=== PATIENT | female | born 1945 | race Caucasian/White ===

== ENCOUNTER 2019-01-03 18:17 | Inpatient (IN) | payer MEDICARE ==
[2019-01-03 18:43] VITALS: BMI 43.0
--- NOTE | 2019-01-03 18:59 | C.PDOC ---
History Of Present Illness 73 yr old female, with a PMHx of HTN, HLD, CAD with stent, p/w LLQ abdominal pain, vomiting, diarrhea x4d. Pt was sent in by PMD, Dr. Funk for evaluation and admission. Son at bedside reports multiple episodes of non-bloody, non-dark diarrhea with abdominal pain as well as a mild headache. He reports that patient has had the mild headache for the past 3 to 4 months, but it is not the worst headache of her life. The abdominal pain is described as diffuse and throbbing. Last BM was this morning and was normal. Patient has not taken any medications for the pain. Denies falls, trauma, rash, vaginal discharge, or vomiting today. 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 used bedside Time Seen by Provider: 01/03/19 18:59 Chief Complaint (Nursing): Abdominal Pain History Per: Patient History/Exam Limitations: no limitations Onset/Duration Of Symptoms: Days (4) Current Symptoms Are (Timing): Still Present Quality Of Discomfort: "Pain" Associated Symptoms: Vomiting, Diarrhea Last Bowel Movement: Today Recent travel outside of the [place]: No Additional History Per: Patient Past Medical History Reviewed: Historical Data, Nursing Documentation, Vital Signs Vital Signs: Last Vital Signs Temp 98.6 F 01/03/19 18:43 Pulse 68 01/03/19 18:43 Resp 18 01/03/19 18:43 BP 112/76 01/03/19 18:43 Pulse Ox 95 01/03/19 18:43 Primary Care Provider: Jason Funk - Medical History PMH: HTN, Hypercholesterolemia Surgical History: Coronary Stent Family History: States: No Known Family Hx - Social History Hx Alcohol Use: No Hx Substance Use: No - Immunization History Hx Tetanus Toxoid Vaccination: No Hx Influenza Vaccination: No Hx Pneumococcal Vaccination: No Review Of Systems Cardiovascular: Negative for: Chest Pain Respiratory: Negative for: Shortness of Breath Gastrointestinal: Positive for: Abdominal Pain (LLQ). Negative for: Melena, Hematochezia Neurological: Positive for: Headache Physical Exam - Physical Exam Appears: Well, Non-toxic, No Acute Distress Skin: Warm, Dry Head: Atraumatic, Normacephalic Eye(s): bilateral: Normal Inspection, PERRL, EOMI Ear(s): Bilateral: Normal Nose: Normal, No Flaring, No Discharge, No Epistaxis, No Deformity, No Te nderness, No Septal Hematoma Oral Mucosa: Moist Tongue: Normal Appearing Lips: Normal Appearing Throat: Normal, No Erythema, No Exudate, No Drooling Neck: Normal, Normal ROM, Trachea Midline, Supple, Other (no meningeal signs) Lymphatic: No Adenopathy Chest: Symmetrical, No Tenderness Cardiovascular: Rhythm Regular, No Friction Rub, No Murmur, No JVD Respiratory: No Rales, No Rhonchi, No Wheezing Gastrointestinal/Abdominal: Soft, Tenderness (diffusely tender), No Mass, No Distention, No Guarding, No Rebound Back: Normal Inspection, No CVA Tenderness, No Vertebral Tenderness Extremity: Normal ROM, No Tenderness, No Pedal Edema Extremity: Bilateral: Atraumatic, Normal Color And Temperature Pulses: Left Dorsalis Pedis: Normal, Right Dorsalis Pedis: Normal Neurological/Psych: Oriented x3, Normal Speech, Normal Cognition, Normal Cranial Nerves, No Cerebellar Signs, Normal Motor, Normal Sensation ED Course And Treatment - Laboratory Results Result Diagrams: 01/04/19 08:15 01/04/19 08:15 O2 Sat by Pulse Oximetry: 95 (on RA ) Pulse Ox Interpretation: Normal - CT Scan/US CT Head Other Rad Studies (CT/US): Read By Radiologist, Radiology Report Reviewed CT/US Interpretation: EXAM: CT Head Without IV contrast. CLINICAL HISTORY: Headache. TECHNIQUE: Axial computed tomography images of the head/brain without intravenous contrast. COMPARISON: None provided. FINDINGS: BRAIN: There is mild periventricular, deep and subcortical white matter hypodensity bilaterally, compatible with mild microangiopathy. No midline shift or mass effect. No evidence for acute intracranial hemorrhage. VENTRICLES: There is mild prominence of ventricles and sulci compatible with mild atrophy. ORBITS: The orbits are unremarkable. SINUSES AND MASTOIDS: The paranasal sinuses and mastoid air cells are clear. BONES: No displaced calvarial fractures identified. SOFT TISSUES: Unremarkable. MISCELLANEOUS: No evidence for acute territorial infarction. IMPRESSION: 1. There is mild prominence of ventricles and sulci compatible with mild atrophy. 2. There is mild periventricular, deep and subcortical white matter hypodensity bilaterally, compatible with mild microangiopathy. 3. No evidence for acute intracranial abnormality. CT abd/pel Other Rad Studies (CT/US): Read By Radiologist, Radiology Report Reviewed CT/US Interpretation: EXAM: CT Abdomen and Pelvis without IV contrast. CLINICAL HISTORY: Abd pain. TECHNIQUE: Axial computed tomography images of the abdomen and pelvis without intravenous contrast. 0.00 mGy-cm. CONTRAST: Without. COMPARISON: None provided. FINDINGS: LUNG BASES: The lung bases appear clear. No pleural effusions are seen. LIVER: Unremarkable. GALLBLADDER AND BILE DUCTS: The gallbladder appears within normal limits. No radioopaque gallstones are seen. No biliary ductal dilatation is evident. PANCREAS: Un remarkable. SPLEEN: Unremarkable. ADRENAL GLANDS: Unremarkable. KIDNEYS, URETERS, AND BLADDER: The kidneys appear within normal limits. There is no hydronephrosis or hydroureter. No urinary calculi are seen. The urinary bladder appeared normal in size and configuration. STOMACH AND BOWEL: Unremarkable appearance of the stomach and bowel. No evidence of bowel obstruction. No evidence suggesting enteritis or colitis. APPENDIX: No evidence of acute appendicitis on CT examination. PERITONEUM: No free fluid. No free air. LYMPH NODES: No lymphadenopathy is evident. REPRODUCTIVE: Unremarkable as visualized. VASCULATURE: No evidence of abdominal aortic aneurysm. Extensive atherosclerotic vascular plaquing is present. BONES: No aggressive appearing osseous lesion. No acute osseous pathology evident. There is evidence of disc desiccation and degenerative disc disease at L2-3 and L5-S1. IMPRESSION: No acute intra-abdominal or pelvic abnormality. Medical Decision Making Medical Decision Makin yr old female p/w LLQ abdominal pain, vomiting, diarrhea x4d. Pt was sent in by PMD, Dr. Funk for evaluation. Mild diffuse abd pain w. out guarding or rebound noted on exam. No fall or trauma. Normal neuro exam. No rash. Overall well appearing. No urinary complaints or CVAT. MIld LORENZANA x3-4 months, with normal neuro exam. Not worst of life or sudden in onset. No meningeal signs. No baptist pain or vision changes. Plan: CT A&P CT Head EKG Labs UA IV Fluids Impression: Gastritis 2045 wbc 15k pending ua, cxr added on giovanny on labs: no baseline ek, nsr, no stemi 2211 CXR unremarkable per my read CTH unremarkable 2226 mild episode of hypoTN, given fluids with improvement no meningeal signs on exam CT AP unremarkable wants tylenol for LORENZANA will give rocephin given elevated WBC and pending UA pt in NAD, agreeable to plan Accepted by Dr. jason Funk to his service UTI noted on labs, abx previously ordered, pt in NAD, BP improved Disposition - Disposition Disposition: HOSPITALIZED Disposition Time: 22:31 Condition: STABLE - Clinical Impression Clinical Impression: Abdominal pain, Leukocytosis, UTI (urinary tract infection) - Scribe Statement The provider has reviewed the documentation as recorded by the Maria Ines Aguilar All medical record entries made by the Mollyibtamika were at my direction and personally dictated by me. I have reviewed the chart and agree that the record accurately reflects my personal performance of the history, physical exam, medical decision making, and the department course for this patient. I have also personally directed, reviewed, and agree with the discharge instructions and disposition.
[2019-01-03] MEDS ORDERED: Sodium Chloride 0.9% 1,000 ML IV SCH (19:30)
[2019-01-03 20:17] LABS: BASO # 0.1 K/uL (0.0-0.2); BASO % 0.3 % (0.0-2.0); EOS # 0.2 K/uL (0.0-0.7); EOS % 1.1 % (0.0-4.0); HEMOGLOBIN 12.5 g/dL (11.0-16.0); LYMPH # 4.8 K/uL (1.0-4.3); LYMPH % 31.3 % (20.0-40.0); MEAN CELL VOLUME 77.1 fL (81.0-99.0); MEAN CORPUSCULAR HEMOGLOBIN 25.2 pg (27.0-31.0); MEAN CORPUSCULAR HGB CONC 32.7 g/dL (33.0-37.0); MEAN PLATELET VOLUME 8.2 fL (7.2-11.7); MONO # 1.8 K/uL (0.0-0.8); NEUT # 8.5 K/uL (1.8-7.0); NEUT % 55.3 % (50.0-75.0); RBC 4.95 Mil/uL (3.80-5.20); RED CELL DISTRIBUTION WIDTH 15.9 % (11.5-14.5); WHITE BLOOD COUNT 15.3 K/uL (4.8-10.8)
[2019-01-03 20:26] LABS: ALB/GLOB RATIO 1.2 (1.0-2.1); ALBUMIN 4.3 g/dL (3.5-5.0); CALCIUM 10.1 mg/dl (8.6-10.4)
[2019-01-03 22:02] LABS: VENOUS BLOOD GAS BASE EXCESS 8.5 mmol/L (0.0-2.0); VENOUS BLOOD GAS PCO2 57 mmHg (40-60); VENOUS BLOOD GAS PO2 23 mm/Hg (30-55)
[2019-01-03] MEDS ORDERED: Sodium Chloride 0.9% 500 ML IV ONE (22:08)
[2019-01-03 22:27] LABS: SQUAMOUS EPITHIAL 1 /hpf (0-5); URINE BILIRUBIN NEGATIVE (NEGATIVE); URINE BLOOD NEGATIVE (NEGATIVE); URINE CLARITY Clear (Clear); URINE COLOR Yellow (YELLOW); URINE GLUCOSE (UA) 2+ mg/dL (Normal); URINE LEUKOCYTE ESTERASE TRACE Leu/uL (Negative); URINE PROTEIN NEGATIVE (NEGATIVE); URINE UROBILINOGEN NORMAL mg/dL (0.2-1.0)
[2019-01-04] MEDS: Sodium Chloride 0.9% 1,000 ML IV SCH ×3 (01:25→14:10)
[2019-01-04] MEDS: Levothyroxine 50 MCG TAB PO SCH (06:23)
[2019-01-04] MEDS: (Novolog) Insulin Aspart, Recombinant 100 u/ml 10 ml vial SC SCH ×4 (07:56→21:08)
[2019-01-04 08:27] LABS: BASO # 0.1 K/uL (0.0-0.2); BASO % 0.5 % (0.0-2.0); EOS # 0.3 K/uL (0.0-0.7); EOS % 2.2 % (0.0-4.0); LYMPH # 3.4 K/uL (1.0-4.3); LYMPH % 29.2 % (20.0-40.0); MEAN CORPUSCULAR HEMOGLOBIN 25.4 pg (27.0-31.0); MEAN CORPUSCULAR HGB CONC 33.4 g/dL (33.0-37.0); MEAN PLATELET VOLUME 8.5 fL (7.2-11.7); MONO # 1.3 K/uL (0.0-0.8); MONO % 11.2 % (0.0-10.0); NEUT # 6.6 K/uL (1.8-7.0); NEUT % 56.9 % (50.0-75.0); NRBC % 0.1 % (0.0-2.0); RBC 4.75 Mil/uL (3.80-5.20); RED CELL DISTRIBUTION WIDTH 16.1 % (11.5-14.5); WHITE BLOOD COUNT 11.6 K/uL (4.8-10.8)
--- NOTE | 2019-01-04 08:38 | CT ---
Date of service: 01/03/2019 PROCEDURE: CT HEAD WITHOUT CONTRAST. HISTORY: Headache COMPARISON: None available. TECHNIQUE: Axial computed tomography images were obtained through the head/brain without intravenous contrast. Radiation dose: Total exam DLP = 1039.27 mGy-cm. This CT exam was performed using one or more of the following dose reduction techniques: Automated exposure control, adjustment of the mA and/or kV according to patient size, and/or use of iterative reconstruction technique. FINDINGS: HEMORRHAGE: No intracranial hemorrhage. BRAIN: No mass effect or edema. Scattered focal lucencies in the subcortical and periventricular white matter suggestive for chronic microvascular ischemic change. Diffuse generalized parenchymal atrophy. Small focal hypodensity seen within the right agee radiata on series 2, image 13 which may represent a small lacunar infarct. Additional focal lucency seen within the right external capsule which may also represent a lacunar infarct. VENTRICLES: Unremarkable. No hydrocephalus. CALVARIUM: Unremarkable. PARANASAL SINUSES: Unremarkable as visualized. No significant inflammatory changes. MASTOID AIR CELLS: Unremarkable as visualized. No inflammatory changes. OTHER FINDINGS: None. IMPRESSION: No acute intracranial abnormality. Chronic microvascular ischemic changes. Diffuse generalized parenchymal atrophy. Small lacunar infarcts in the right agee radiata and right external capsule. If symptoms persists, consider correlation with MRI. A preliminary report was generated at 10:08 p.m. on 01/03/[address] Taurus Taylor from [employer].
[2019-01-04 08:47] LABS: ALB/GLOB RATIO 1.1 (1.0-2.1); ALBUMIN 3.9 g/dL (3.5-5.0); CALCIUM 9.4 mg/dl (8.6-10.4)
[2019-01-04 08:51] LABS: CK-MB 2.98 ng/mL (0.0-3.38); TROPONIN I 0.043 ng/mL (0.00-0.120)
[2019-01-04] MEDS: metroNIDAZOLE IV 500 mg/100 ml 500 MG/100 ML BAG IVPB SCH ×2 (09:15→17:08)
[2019-01-04] MEDS: Potassium Chloride 20 mEq ER Tab PO SCH ×2 (09:15→13:00)
[2019-01-04] MEDS ORDERED: Pneumococcal 23-Valent Vaccine IM ONE (09:15)
--- NOTE | 2019-01-04 09:48 | CT ---
Date of service: 01/03/2019 PROCEDURE: CT abdomen and pelvis HISTORY: Abdominal pain COMPARISON: No prior study available comparison. TECHNIQUE: Contiguous axial images of the abdomen and pelvis performed without oral or intravenous contrast material. Additional 2D sagittal coronal reformats generated. Radiation dose: Total exam DLP = 952.73 mGy-cm. This CT exam was performed using one or more of the following dose reduction techniques: Automated exposure control, adjustment of the mA and/or kV according to patient size, and/or use of iterative reconstruction technique. FINDINGS: LOWER THORAX: There appears to be some minor chronic atelectasis and or scarring in lingular region. Mild passive/dependent type atelectasis both posterior lower lung cline. No effusion or basilar pneumothorax. Heart size within range of normal. No significant pericardial effusion. A tiny hiatal hernia. LIVER: Liver exhibits normal size and attenuation pattern without masses collections or calcifications. Gallbladder and bile ducts Gallbladder physiologically distended. No evidence of intraluminal gallbladder calculi however questionable artifact versus layering dependent sludge. PANCREAS: Pancreas is atrophic and fatty replaced. No large pancreatic mass collection. SPLEEN: Spleen exhibits normal size and attenuation pattern. A tiny radiopaque density-calcification within the splenic hilar region which is likely vascular in origin. ADRENALS: A slightly nodular enlargement left adrenal gland KIDNEYS AND URETERS: Kidneys demonstrate relatively symmetric size. No evidence of nephrolithiasis or hydronephrosis. Questionable small cyst lateral cortex mid to lower pole left kidney. BLADDER: Urinary bladder is incompletely distended which presumably in part accounts for thick-walled appearance however correlation with urinalysis recommended to exclude cystitis. REPRODUCTIVE: Unremarkable as visualized APPENDIX: No evidence of acute appendicitis. BOWEL: Evaluation of bowel is somewhat limited due to the lack of oral contrast material.. The stomach is incompletely distended with slight thick-walled appearance. Visualized loops of small bowel exhibit normal contour caliber. No evidence of acute mechanical small bowel obstruction. Large bowel appears grossly unremarkable. PERITONEUM: Unremarkable. No fluid collection. No free air. There is a small fat containing umbilical hernia. LYMPH NODES: Unremarkable. No enlarged lymph nodes. VASCULATURE: Unremarkable. No aortic aneurysm. Aortic atherosclerotic calcification or mural plaque present. BONES: Mild multilevel degenerative spondylosis of the lumbar spine.. OTHER FINDINGS: None. IMPRESSION: Mild urinary bladder wall thickening in part due to incomplete distention however correlation with urinalysis recommended to exclude cystitis. Slight nodular is enlargement left adrenal gland. Suspect small cyst lateral cortex lower pole left kidney
[2019-01-04] MEDS ORDERED: Enoxaparin 40 mg Syringe SC SCH ×2 (10:00)
--- NOTE | 2019-01-04 10:33 | RAD ---
Chest x-ray single frontal view HISTORY: Leukocytosis. Comparison 01/03/2019 FINDINGS: Mild venous congestion. Status post median sternotomy. Tortuous ectatic aorta with atherosclerotic calcification at the aortic knob. Mild nodularity at the left base. Top normal heart size. Degenerative changes the spine and shoulders. Impression: Mild venous congestion. Status post median sternotomy. Tortuous ectatic aorta with atherosclerotic calcification at the aortic knob. Mild nodularity at the left lung base. Clinical correlation.
[2019-01-04 11:24] LABS: INR 1.2; PARTIAL THROMBOPLASTIN TIME 27.9 SECONDS (21-34); PROTHROMBIN TIME 12.7 SECONDS (9.7-12.2)
[2019-01-04 17:31] LABS: CK-MB 2.52 ng/mL (0.0-3.38)
[2019-01-04 17:33] LABS: TROPONIN I 0.033 ng/mL (0.00-0.120)
--- NOTE | 2019-01-04 22:42 | CP.PCM.HP ---
Present on Admission - Present on Admission Any Indicators Present on Admission: Yes History of Uncontrolled Diabetes: Yes Past Patient History - Past Social History Smoking Status: Never Smoked - CARDIAC Hx Hypercholesterolemia: Yes Hx Hypertension: Yes - ENDOCRINE/METABOLIC Hx Endocrine Disorders: Yes Hx Diabetes Mellitus Type 2: Yes - MUSCULOSKELETAL/RHEUMATOLOGICAL Hx Falls: No - PSYCHIATRIC Hx Substance Use: No - SURGICAL HISTORY Hx Coronary Stent: Yes - ANESTHESIA Hx Anesthesia: Yes Meds Allergies/Adverse Reactions: Allergies Allergy/AdvReac Type Severity Reaction Status Date / Time No Known Allergies Allergy Verified 01/03/19 18:42 Results - Vital Signs Recent Vital Signs: Last Vital Signs Temp 97.7 F 01/04/19 15:02 Pulse 92 H 01/04/19 15:02 Resp 20 01/04/19 15:02 BP 131/64 01/04/19 15:02 Pulse Ox 95 01/04/19 21:21 - Labs Result Diagrams: 01/04/19 08:15 01/04/19 08:15 Labs: Laboratory Results - last 24 hr 01/04/19 01/04/19 01/04/19 08:15 08:15 11:00 WBC 11.6 H RBC 4.75 Hgb 12.0 Hct 36.1 MCV 76.0 L MCH 25.4 L MCHC 33.4 RDW 16.1 H Plt Count 257 MPV 8.5 Neut % (Auto) 56.9 Lymph % (Auto) 29.2 [place] % (Auto) 11.2 H Eos % (Auto) 2.2 Baso % (Auto) 0.5 Neut # (Auto) 6.6 Lymph # (Auto) 3.4 [place] # (Auto) 1.3 H Eos # (Auto) 0.3 Baso # (Auto) 0.1 PT INR APTT Sodium 140 Potassium 2.9 L Chloride 96 L Carbon Dioxide 32 H Anion Gap 15 BUN 68 H Creatinine 2.5 H Est GFR ( Amer) 23 Est GFR (Non-Af Amer) 19 POC Glucose (mg/dL) 233 H Random Glucose 207 H D Calcium 9.4 Total Bilirubin 0.5 AST 27 ALT 28 Alkaline Phosphatase 67 Total Creatine Kinase 60 CK-MB (Mass) 2.98 Troponin I 0.0430 Total Protein 7.4 Albumin 3.9 Globulin 3.4 Albumin/Globulin Ratio 1.1 Carcinoembryonic Ag CA 19-9 Antigen CA 125 Antigen Vitamin B12 359 TSH 3rd Generation 1.40 01/04/19 01/04/19 01/04/19 11:10 11:10 16:44 WBC RBC Hgb Hct MCV MCH MCHC RDW Plt Count MPV Neut % (Auto) Lymph % (Auto) [place] % (Auto) Eos % (Auto) Baso % (Auto) Neut # (Auto) Lymph # (Auto) [place] # (Auto) Eos # (Auto) Baso # (Auto) PT 12.7 H INR 1.2 APTT 27.9 Sodium Potassium Chloride Carbon Dioxide Anion Gap BUN Creatinine Est GFR ( Amer) Est GFR (Non-Af Amer) POC Glucose (mg/dL) 86 Random Glucose Calcium Total Bilirubin AST ALT Alkaline Phosphatase Total Creatine Kinase CK-MB (Mass) Troponin I Total Protein Albumin Globulin Albumin/Globulin Ratio Carcinoembryonic Ag 2.6 CA 19-9 Antigen 37.9 H CA 125 Antigen 6.6 Vitamin B12 [facility] 3rd Generation 01/04/19 01/04/19 01/04/19 17:03 21:01 21:03 WBC RBC Hgb Hct MCV MCH MCHC RDW Plt Count MPV Neut % (Auto) Lymph % (Auto) [place] % (Auto) Eos % (Auto) Baso % (Auto) Neut # (Auto) Lymph # (Auto) [place] # (Auto) Eos # (Auto) Baso # (Auto) PT INR APTT Sodium Potassium Chloride Carbon Dioxide Anion Gap BUN Creatinine Est GFR ( Amer) Est GFR (Non-Af Amer) POC Glucose (mg/dL) 61 L 58 L Random Glucose Calcium Total Bilirubin AST ALT Alkaline Phosphatase Total Creatine Kinase 62 CK-MB (Mass) 2.52 Troponin I 0.0330 Total Protein Albumin Globulin Albumin/Globulin Ratio Carcinoembryonic Ag CA 19-9 Antigen CA 125 Antigen Vitamin B12 [facility] 3rd Generation 01/04/19 21:55 WBC RBC Hgb Hct MCV MCH MCHC RDW Plt Count MPV Neut % (Auto) Lymph % (Auto) [place] % (Auto) Eos % (Auto) Baso % (Auto) Neut # (Auto) Lymph # (Auto) [place] # (Auto) Eos # (Auto) Baso # (Auto) PT INR APTT Sodium Potassium Chloride Carbon Dioxide Anion Gap BUN Creatinine Est GFR ( Amer) Est GFR (Non-Af Amer) POC Glucose (mg/dL) 120 H Random Glucose Calcium Total Bilirubin AST ALT Alkaline Phosphatase Total Creatine Kinase CK-MB (Mass) Troponin I Total Protein Albumin Globulin Albumin/Globulin Ratio Carcinoembryonic Ag CA 19-9 Antigen CA 125 Antigen Vitamin B12 TSH 3rd Generation
[2019-01-05] MEDS: metroNIDAZOLE IV 500 mg/100 ml 500 MG/100 ML BAG IVPB SCH ×3 (02:22→18:22)
[2019-01-05] MEDS: Sodium Chloride 0.9% 1,000 ML IV SCH (03:55)
[2019-01-05 05:37] LABS: BASO % 0.4 % (0.0-2.0); EOS # 0.3 K/uL (0.0-0.7); EOS % 3.2 % (0.0-4.0); HEMOGLOBIN 11.6 g/dL (11.0-16.0); LYMPH # 3.2 K/uL (1.0-4.3); LYMPH % 34.3 % (20.0-40.0); MEAN CELL VOLUME 77.4 fL (81.0-99.0); MEAN CORPUSCULAR HEMOGLOBIN 25.1 pg (27.0-31.0); MEAN CORPUSCULAR HGB CONC 32.5 g/dL (33.0-37.0); MEAN PLATELET VOLUME 8.1 fL (7.2-11.7); MONO # 1.2 K/uL (0.0-0.8); MONO % 12.5 % (0.0-10.0); NEUT # 4.6 K/uL (1.8-7.0); NEUT % 49.6 % (50.0-75.0); NRBC % 0.1 % (0.0-2.0); RBC 4.62 Mil/uL (3.80-5.20); RED CELL DISTRIBUTION WIDTH 16.1 % (11.5-14.5); WHITE BLOOD COUNT 9.3 K/uL (4.8-10.8)
--- NOTE | 2019-01-05 05:40 | HP ---
CHIEF COMPLAINT: Abdominal pain, nausea, and vomiting. HISTORY OF PRESENT ILLNESS: This is a 73-year-old [place]ian female, who is noncompliant with diet, medication and followup with past medical history of osteoarthritis, type 2 diabetes, hypertension, and hyperlipidemia, who is noncompliant with her diet and medication. The patient was seen by me on the day of admission with abdominal pain, nausea, vomiting, generalized weakness, polyuria, polydipsia, polyphagia, and dysuria. The patient denies any history of sneezing, itchy eyes, or itchy nose. She denied any history of loss of consciousness. The patient has nausea, no vomiting. She has generalized abdominal pain, bloating, inability to move bowels. She has bilateral knee pain. She denies any dyspnea on exertion, orthopnea, or PND. She has generalized weakness. She is extremely anxious, distress. According to the patient, she also has mild headaches. Her headaches have been going on for three to four months right now, but in the past, she had these headaches all her life. The abdominal pain is diffuse, throbbing. Had a large bowel movement prior to the day of admission. There is no history of dysuria. There is no history of joint pain. There is no history of incontinence of the urine. There is no history of fever or chills. PAST MEDICAL HISTORY: Type 2 diabetes, hypertension, and hyperlipidemia. SOCIAL HISTORY: Nonsmoker, non-ETOH user. CURRENT MEDICATIONS: The [place], she was not taking any medications. PHYSICAL EXAMINATION: GENERAL: An elderly female, who is distressed by extreme anxiety, bloating, and abdominal discomfort. VITAL SIGNS: Blood pressure 131/64, pulse 92, respiratory rate 20, and temperature 97.7. SKIN: Senile turgor, no bruises, no purpura, no petechiae, and no ecchymosis. HEENT: Atraumatic, normocephalic. Negative pallor. Negative jaundice. Extraocular movements are intact. NECK: Supple. No JVD. No lymph nodes. No thyromegaly. No carotid bruits. CHEST WALL: Bilateral symmetrical expansion. LUNGS: Clear, no rales, no rhonchi. CARDIOVASCULAR SYSTEM: PMI not localized. S1 and S2 regular. No heave, no thrill. ABDOMEN: Soft and nontender. Bowel sounds are positive. RECTAL: No masses, no bleed. EXTREMITIES: No clubbing,cyanosis, or edema. CENTRAL NERVOUS SYSTEM: Awake, alert, and oriented x3. Cranial nerves II through XII are normal. Power is 5/5 x4. Plantars are downgoing. ASSESSMENT: 1. Abdominal pain, nausea, vomiting, rule out gastritis, rule out peptic ulcer disease, rule out urinary tract infection, rule out gastroenteritis. 2. Dehydration. 3. Severe anxiety and depression. 4. Hypertension. PLAN: Admit. Detailed orders are written. Seen and examined. Jason Funk MD
[2019-01-05 06:46] LABS: ALB/GLOB RATIO 1.2 (1.0-2.1); ALBUMIN 3.8 g/dL (3.5-5.0); CALCIUM 9.6 mg/dl (8.6-10.4)
[2019-01-05 06:54] LABS: CK-MB 2.89 ng/mL (0.0-3.38); TROPONIN I 0.075 ng/mL (0.00-0.120)
[2019-01-05] MEDS: Levothyroxine 50 MCG TAB PO SCH ×2 (07:02→07:03)
[2019-01-05] MEDS: (Novolog) Insulin Aspart, Recombinant 100 u/ml 10 ml vial SC SCH ×4 (07:45→21:43)
[2019-01-05] MEDS ORDERED: Etomidate 20 mg/10ml Inj IV ONE (10:15)
[2019-01-05] MEDS ORDERED: Lactated Ringer's 500 ML IV ONE ×2 (10:17)
[2019-01-05] MEDS ORDERED: Propofol 10 mg/ml Inj (20 ML) ONE (10:37)
[2019-01-05] MEDS ORDERED: Peg-Electrolyte Oral Soln 4L (Golytely) PO ONE (13:00)
[2019-01-05] MEDS: Potassium Ch 20mEq in D5-1/2NS 1,000 ML IV SCH (15:00)
--- NOTE | 2019-01-05 16:35 | US ---
Date of service: 01/05/2019 HISTORY: acute pancreatitis COMPARISON: CT abdomen and pelvis from 01/03/2019. TECHNIQUE: Grayscale imaging was performed. FINDINGS: LIVER: Measures 14.4 cm. There is diffuse increased echogenicity of the liver parenchyma. No mass. No intrahepatic bile duct dilatation. GALLBLADDER: There are no gallstones, wall thickening or pericholecystic fluid. The sonographic Holloway's sign is negative. COMMON BILE DUCT: Measures 4.2 mm. No stones. No dilatation. PANCREAS: Unremarkable as visualized. No mass. No ductal dilatation. RIGHT KIDNEY: Measures 9.6cm. Diffuse increased cortical echogenicity. No calculus, mass, or hydronephrosis. There is a 8 x 7 x 7 mm simple cyst in the lower pole. LEFT KIDNEY: Measures 8.2cm. Diffuse increased cortical echogenicity. No calculus, mass, or hydronephrosis. There is a 11 x 8 x 9 mm simple cyst in the lower pole and 9 x 7 x 9 mm simple cyst in the lower pole. SPLEEN: Normal in size and contour. No mass. AORTA: No aneurysmal dilatation. IVC: Unremarkable. OTHER FINDINGS: None. IMPRESSION: 1. Fatty liver. 2. No cholelithiasis or biliary dilatation. 3. Diffuse cortical echogenicity in the kidneys could represent underlying medical renal disease.
[2019-01-05] MEDS ORDERED: Bisacodyl 5mg EC Tab PO ONE (17:00)
--- NOTE | 2019-01-05 22:43 | CP.PCM.PN ---
Subjective - Date & Time of Evaluation Date of Evaluation: 01/05/19 Time of Evaluation: 08:20 - Subjective Subjective: dict Objective - Vital Signs/Intake and Output Vital Signs (last 24 hours): Temp Pulse Resp BP Pulse Ox 98 F 96 H 20 119/81 100 01/05/19 15:00 01/05/19 16:00 01/05/19 15:00 01/05/19 15:00 01/05/19 15:00 Intake and Output: 01/05/19 01/06/19 18:59 06:59 Intake Total 640 Balance 640 - Medications Medications: Current Medications Acetaminophen (Tylenol 325mg Tab) 650 mg PO Q6 PRN PRN Reason: Pain, moderate (4-7) Last Admin: 01/04/19 17:10 Dose: 650 mg Aspirin (Ecotrin) 81 mg PO DAILY [facility] Last Admin: 01/05/19 09:30 Dose: Not Given Metronidazole (Flagyl) 500 mg in 100 mls @ 100 mls/hr IVPB Q8H [facility]; Protocol Last Admin: 01/05/19 18:22 Dose: 100 mls/hr Potassium Chloride/Dextrose/Sod Cl (Potassium Chl 20 Meq In D5-1/2ns) 1,000 mls @ 80 mls/hr IV .[id number] [facility] Last Admin: 01/05/19 15:00 Dose: 80 mls/hr Insulin Aspart (Novolog) 0 unit SC ACHS [facility]; Protocol Last Admin: 01/05/19 21:43 Dose: Not Given Levothyroxine Sodium (Synthroid) 50 mcg PO DAILY@0630 [facility] Last Admin: 01/05/19 07:03 Dose: Not Given Lorazepam (Ativan) 0.5 mg PO BID [facility] Last Admin: 01/05/19 17:46 Dose: Not Given Metformin HCl (Glucophage) 500 mg PO BID [facility] Last Admin: 01/04/19 09:15 Dose: 500 mg Rosuvastatin Calcium (Crestor) 10 mg PO [facility] Last Admin: 01/05/19 21:09 Dose: 10 mg Sertraline HCl (Zoloft) 50 mg PO HS [facility] Last Admin: 01/05/19 21:10 Dose: 50 mg - Labs Labs: 01/05/19 05:32 01/05/19 05:32 PT 12.7 SECONDS (9.7-12.2) H 01/04/19 11:10 INR 1.2 01/04/19 11:10 APTT 27.9 SECONDS (21-34) 01/04/19 11:10
[2019-01-06] MEDS: metroNIDAZOLE IV 500 mg/100 ml 500 MG/100 ML BAG IVPB SCH ×3 (01:09→18:04)
--- NOTE | 2019-01-06 02:30 | PN ---
DATE: 01/05/2019 SUBJECTIVE: The patient is feeling anxious. She is feeling abdominal pain. The patient's amylase and lipase are up. She is status post endoscopy. Endoscopic findings are noted. Pending colonoscopy. Right now, she is n.p.o. because of pancreatitis. PHYSICAL EXAMINATION: VITAL SIGNS: Blood pressure 119/81, pulse 93, respiratory rate 20, temperature 98. LUNGS: Clear. CARDIOVASCULAR SYSTEM: S1 and S2, regular. ABDOMEN: Epigastric tenderness. Bowel sounds are present. ASSESSMENT: 1. Acute pancreatitis, placed the patient nothing by mouth and intravenous fluids. Abdominal ultrasound is negative for choledocholithiasis or cholecystitis despite for positive PET scan. 2. Type 2 diabetes, poorly controlled. 3. Severe generalized anxiety disorder. 4. Dehydration. PLAN: IV fluids. Anxiolytics. Flagyl. N.p.o. Monitor the patient. Jasno Funk MD
[2019-01-06] MEDS: Levothyroxine 50 MCG TAB PO SCH ×2 (06:29→06:32)
[2019-01-06] MEDS: Potassium Ch 20mEq in D5-1/2NS 1,000 ML IV SCH (06:30)
[2019-01-06 09:27] LABS: ALB/GLOB RATIO 1.2 (1.0-2.1); ALBUMIN 3.9 g/dL (3.5-5.0); CALCIUM 9.9 mg/dl (8.6-10.4)
[2019-01-06] MEDS: (Novolog) Insulin Aspart, Recombinant 100 u/ml 10 ml vial SC SCH ×4 (09:41→21:02)
--- NOTE | 2019-01-06 12:52 | PN ---
DATE: 01/06/2019 LOCATION: 657, bed A. SUBJECTIVE: This is a 73-year-old female seen and examined early in rounds, was initially scheduled for colonoscopy today, but due to the elevated serum lipase and amylase level indicative of an acute episode of pancreatitis as ordered by myself, the case discussed with the primary MD and colonoscopy for today is cancelled. The patient still has intermittent period of abdominal pain with tachycardia over the night with elevated blood glucose level. The entire chart is reviewed including but not limited to the most recent lab and no chest pain, palpitation this morning or significant active GI bleeding. LABORATORY DATA: Today's lab results showed BUN went down to 21, creatinine 1.4, latest blood glucose level 300, phosphorus 2.4 with magnesium 1.2, most likely due to her acute pancreatitis. Amylase today went down to 144 and lipase went down to 936. Most recent abdominal ultrasound showed evidence of fatty liver with diffuse cortical echogenicity in the kidneys. PHYSICAL EXAMINATION: GENERAL: A 73-year-old female, awake, alert, and oriented. VITAL SIGNS: Afebrile with intermittent period of abdominal pain with pulse of 112, respiratory rate 20-22, and blood pressure 136/86. HEENT: Showed pale, dry oral mucous membrane. Nonicteric sclerae. LUNGS: Few scattered crepitation. Decreased air entry at bases. HEART: Positive S1 and S2. ABDOMEN: Soft with mild generalized tenderness. No mass or organomegaly. No rebound tenderness or guarding. EXTREMITIES: Without significant clubbing, cyanosis or edema. NEUROLOGICAL: No reported new neurological deficits, sensory or motor. No new reported focal deficits. IMPRESSION: 1. Acute pancreatitis. 2. Poorly-controlled diabetes mellitus. 3. Re-exacerbation of peptic ulcer disease. 4. Dehydration with mild renal insufficiency. 5. Severe anxiety syndrome, by history. SUGGESTIONS: 1. Continue current management. 2. Antireflux measures. 3. The patient in the long run will need colonoscopy due to her clinical presentation. 4. We will follow up closely with you. Gucci Hussein MD
[2019-01-06] MEDS: Magnesium Sulfate 1 gm in D5W 1 GM/100 ML BAG IVPB SCH ×2 (13:18→14:00)
[2019-01-06] MEDS: Dextrose 5%/0.45% NS 1,000 ML IV SCH (13:22)
[2019-01-06] MEDS: Metoprolol Succinate 25 mg XL Tab PO SCH (17:04)
[2019-01-07] MEDS: metroNIDAZOLE IV 500 mg/100 ml 500 MG/100 ML BAG IVPB SCH ×2 (01:14→10:04)
[2019-01-07] MEDS: Dextrose 5%/0.45% NS 1,000 ML IV SCH ×2 (01:17→11:53)
--- NOTE | 2019-01-07 04:41 | CP.PCM.PN ---
Subjective - Date & Time of Evaluation Date of Evaluation: 01/06/19 Time of Evaluation: 08:00 - Subjective Subjective: dict Objective - Vital Signs/Intake and Output Vital Signs (last 24 hours): Temp Pulse Resp BP Pulse Ox 97.8 F 86 20 104/74 97 01/06/19 23:30 01/06/19 23:30 01/06/19 23:30 01/06/19 23:30 01/06/19 23:30 Intake and Output: 01/06/19 01/07/19 18:59 06:59 Intake Total 800 Balance 800 - Medications Medications: Current Medications Acetaminophen (Tylenol 325mg Tab) 650 mg PO Q6 PRN PRN Reason: Pain, moderate (4-7) Last Admin: 01/04/19 17:10 Dose: 650 mg Aspirin (Ecotrin) 81 mg PO DAILY [facility] Last Admin: 01/06/19 09:41 Dose: 81 mg Metronidazole (Flagyl) 500 mg in 100 mls @ 100 mls/hr IVPB Q8H [facility]; Protocol Last Admin: 01/07/19 01:14 Dose: 100 mls/hr Dextrose/Sodium Chloride (Dextrose 5%/0.45% Ns 1000 Ml) 1,000 mls @ 100 mls/hr IV .Q10H [facility] Last Admin: 01/07/19 01:17 Dose: 100 mls/hr Insulin Aspart (Novolog) 0 unit SC ACHS [facility]; Protocol Last Admin: 01/06/19 21:02 Dose: Not Given Levothyroxine Sodium (Synthroid) 50 mcg PO DAILY@0630 [facility] Last Admin: 01/06/19 06:32 Dose: Not Given Lorazepam (Ativan) 0.5 mg PO TID [facility] Last Admin: 01/06/19 18:04 Dose: 0.5 mg Metformin HCl (Glucophage) 500 mg PO BID [facility] Last Admin: 01/04/19 09:15 Dose: 500 mg Metoprolol Succinate (Toprol Xl) 25 mg PO DAILY [facility] Last Admin: 01/06/19 17:04 Dose: 25 mg Pantoprazole Sodium (Protonix Inj) 40 mg IVP DAILY [facility] Last Admin: 01/06/19 13:19 Dose: 40 mg Rosuvastatin Calcium (Crestor) 10 mg PO HS [facility] Last Admin: 01/06/19 21:27 Dose: 10 mg Sertraline HCl (Zoloft) 50 mg PO HS [facility] Last Admin: 01/06/19 21:27 Dose: 50 mg - Labs Labs: 01/05/19 05:32 01/06/19 08:36 PT 12.7 SECONDS (9.7-12.2) H 01/04/19 11:10 INR 1.2 01/04/19 11:10 APTT 27.9 SECONDS (21-34) 01/04/19 11:10
[2019-01-07] MEDS: Levothyroxine 50 MCG TAB PO SCH (05:50)
[2019-01-07 07:57] VITALS: O2SAT 100
[2019-01-07 08:08] LABS: ALB/GLOB RATIO 1.1 (1.0-2.1); ALBUMIN 3.2 g/dL (3.5-5.0); CALCIUM 9.3 mg/dl (8.6-10.4)
[2019-01-07] MEDS: (Novolog) Insulin Aspart, Recombinant 100 u/ml 10 ml vial SC SCH ×4 (08:08→21:00)
[2019-01-07] MEDS: Metoprolol Succinate 25 mg XL Tab PO SCH (10:04)
[2019-01-07] MEDS ORDERED: Potassium Chloride 20 mEq/15 ml LIQ UD PO STA (14:33)
--- NOTE | 2019-01-07 14:53 | CP.PCM.PN ---
Subjective - Date & Time of Evaluation Date of Evaluation: 01/07/19 Time of Evaluation: 14:53 - Subjective Subjective: PATIENT SEEN AND EXAMINED AT THE BEDSIDE Objective - Vital Signs/Intake and Output Vital Signs (last 24 hours): Temp Pulse Resp BP Pulse Ox 97.8 F 120 H 20 109/76 100 01/07/19 07:05 01/07/19 10:21 01/07/19 07:05 01/07/19 10:21 01/07/19 07:05 Intake and Output: 01/07/19 01/07/19 06:59 18:59 Intake Total 1700 Output Total 400 Balance 1300 - Medications Medications: Current Medications Acetaminophen (Tylenol 325mg Tab) 650 mg PO Q6 PRN PRN Reason: Pain, moderate (4-7) Last Admin: 01/04/19 17:10 Dose: 650 mg Aspirin (Ecotrin) 81 mg PO DAILY [facility] Last Admin: 01/07/19 10:04 Dose: 81 mg Insulin Aspart (Novolog) 0 unit SC [facility]; Protocol Last Admin: 01/07/19 12:20 Dose: 8 units Levothyroxine Sodium (Synthroid) 50 mcg PO DAILY@0630 [facility] Last Admin: 01/07/19 05:50 Dose: 50 mcg Lorazepam (Ativan) 0.5 mg PO TID [facility] Last Admin: 01/07/19 13:10 Dose: 0.5 mg Metformin HCl (Glucophage) 500 mg PO BID [facility] Last Admin: 01/04/19 09:15 Dose: 500 mg Metoprolol Succinate (Toprol Xl) 25 mg PO DAILY [facility] Last Admin: 01/07/19 10:04 Dose: 25 mg Pantoprazole Sodium (Protonix Ec Tab) 20 mg PO DAILY [facility] Rosuvastatin Calcium (Crestor) 10 mg PO [facility] Last Admin: 01/06/19 21:27 Dose: 10 mg Sertraline HCl (Zoloft) 50 mg PO [facility] Last Admin: 01/06/19 21:27 Dose: 50 mg - Labs Labs: 01/05/19 05:32 01/07/19 07:15 PT 12.7 SECONDS (9.7-12.2) H 01/04/19 11:10 INR 1.2 01/04/19 11:10 APTT 27.9 SECONDS (21-34) 01/04/19 11:10 Assessment and Plan - Assessment and Plan (Free Text) Assessment: FOLLOW UP WITH DR NASH IN HIS OFFICE ----CALL FOR APPOINTMENT FOLLOW UP WITH DR JAIME IN HIS OFFICE CONTINUE HOME MEDICATION NEW PRESCRIPTION GIVEN ASPIRIN 81 MG PO DIALY SYNTHROID 50 MCG PO DAILY METFORMIN 500 MG PO BID TOPROL XL 25 MG PO DAILY PROTONIX 40 MG PO DAILY CRESTOR 10 MG PO DAILY SERTRALINE 50 MG PO HS ACTIVITY TOLERATED CALL DR NASH OR GO TO THE EMERGENCY ROOM IF SYMPTOM RETURN OR WORSENING
[2019-01-07] MEDS: Pantoprazole 20 mg EC Tab PO SCH (15:08)
--- NOTE | 2019-01-07 19:43 | CP.PCM.DIS ---
Provider - Provider Date of Admission: 01/03/19 22:37 Attending physician: Jason Funk MD Consults: 01/04/19 06:41 Gastroenterology Consult Routine Comment: Consulting Provider: Gucci Nash Consulting Physician: Gucci Nash Reason for Consult: Abd. pain, N&V 01/04/19 10:00 Nursing Referral for Palliative Care Routine Comment: Physician Instructions: Reason For Exam: palliative care score 7 Time Spent in preparation of Discharge (in minutes): 45 Hospital Course - Lab Results Lab Results: Micro Results 01/03/19 22:22 Blood Blood Culture - Preliminary NO GROWTH AFTER 3 DAYS 01/03/19 22:22 Blood Blood Culture - Preliminary NO GROWTH AFTER 3 DAYS Most Recent Lab Values WBC 9.3 K/uL (4.8-10.8) 01/05/19 05:32 RBC 4.62 Mil/uL (3.80-5.20) 01/05/19 05:32 Hgb 11.6 g/dL (11.0-16.0) 01/05/19 05:32 Hct 35.8 % (34.0-47.0) 01/05/19 05:32 MCV 77.4 fL (81.0-99.0) L 01/05/19 05:32 MCH 25.1 pg (27.0-31.0) L 01/05/19 05:32 MCHC 32.5 g/dL (33.0-37.0) L 01/05/19 05:32 RDW 16.1 % (11.5-14.5) H 01/05/19 05:32 Plt Count 205 K/uL (130-400) 01/05/19 05:32 MPV 8.1 fL (7.2-11.7) 01/05/19 05:32 Neut % (Auto) 49.6 % (50.0-75.0) L 01/05/19 05:32 Lymph % (Auto) 34.3 % (20.0-40.0) 01/05/19 05:32 [place] % (Auto) 12.5 % (0.0-10.0) H 01/05/19 05:32 Eos % (Auto) 3.2 % (0.0-4.0) 01/05/19 05:32 Baso % (Auto) 0.4 % (0.0-2.0) 01/05/19 05:32 Neut # (Auto) 4.6 K/uL (1.8-7.0) 01/05/19 05:32 Lymph # (Auto) 3.2 K/uL (1.0-4.3) 01/05/19 05:32 [place] # (Auto) 1.2 K/uL (0.0-0.8) H 01/05/19 05:32 Eos # (Auto) 0.3 K/uL (0.0-0.7) 01/05/19 05:32 Baso # (Auto) 0.0 K/uL (0.0-0.2) 01/05/19 05:32 PT 12.7 SECONDS (9.7-12.2) H 01/04/19 11:10 INR 1.2 01/04/19 11:10 APTT 27.9 SECONDS (21-34) 01/04/19 11:10 pO2 23 mm/Hg (30-55) L 01/03/19 21:58 VBG pH 7.40 (7.32-7.43) 01/03/19 21:58 VBG pCO2 57 mmHg (40-60) 01/03/19 21:58 VBG HCO3 30.0 mmol/L 01/03/19 21:58 VBG Total CO2 37.0 mmol/L (22-28) H 01/03/19 21:58 VBG O2 Sat (Calc) 34.5 % (40-65) L 01/03/19 21:58 VBG Base Excess 8.5 mmol/L (0.0-2.0) H 01/03/19 21:58 VBG Potassium 2.8 mmol/L (3.6-5.2) L 01/03/19 21:58 Sodium 139.0 mmol/l (132-148) 01/03/19 21:58 Chloride 94.0 mmol/L (98-107) L 01/03/19 21:58 Glucose 214 mg/dl (65-105) H 01/03/19 21:58 Lactate 2.2 mmol/L (0.7-2.1) H 01/03/19 21:58 Sodium 139 mmol/L (132-148) 01/07/19 07:15 Potassium 3.5 mmol/L (3.6-5.2) L 01/07/19 07:15 Chloride 105 mmol/L (98-107) 01/07/19 07:15 Carbon Dioxide 28 mmol/L (22-30) 01/07/19 07:15 Anion Gap 10 (10-20) 01/07/19 07:15 BUN 16 mg/dL (7-17) 01/07/19 07:15 Creatinine 1.5 mg/dL (0.7-1.2) H 01/07/19 07:15 Est GFR ( Amer) 41 01/07/19 07:15 Est GFR (Non-Af Amer) 34 01/07/19 07:15 POC Glucose (mg/dL) 95 mg/dL (65-110) 01/07/19 17:08 Random Glucose 234 mg/dL (65-105) H D 01/07/19 07:15 Calcium 9.3 mg/dl (8.6-10.4) 01/07/19 07:15 Phosphorus 2.4 mg/dL (2.5-4.5) L 01/06/19 08:36 Magnesium 1.6 mg/dL (1.6-2.3) 01/07/19 07:15 Total Bilirubin 0.4 mg/dL (0.2-1.3) 01/07/19 07:15 AST 25 U/L (14-36) 01/07/19 07:15 ALT 26 U/L (9-52) 01/07/19 07:15 Alkaline Phosphatase 53 U/L (38-126) 01/07/19 07:15 Total Creatine Kinase 60 U/L (30-135) 01/05/19 05:32 CK-MB (Mass) 2.89 ng/mL (0.0-3.38) 01/05/19 05:32 Troponin I 0.0750 ng/mL (0.00-0.120) 01/05/19 05:32 Total Protein 6.1 g/dL (6.3-8.3) L 01/07/19 07:15 Albumin 3.2 g/dL (3.5-5.0) L 01/07/19 07:15 Globulin 2.9 gm/dL (2.2-3.9) 01/07/19 07:15 Albumin/Globulin Ratio 1.1 (1.0-2.1) 01/07/19 07:15 Amylase 144 U/L (30-110) H D 01/06/19 08:36 Lipase 244 U/L (23-300) 01/07/19 07:15 Carcinoembryonic Ag 2.6 ng/mL (0-3.0) 01/04/19 11:10 CA 19-9 Antigen 37.9 U/mL (0-37) H 01/04/19 11:10 CA 125 Antigen 6.6 U/mL (0-35) 01/04/19 11:10 Vitamin B12 359 pg/mL (239-931) 01/04/19 08:15 TSH 3rd Generation 1.40 mIU/L (0.46-4.68) 01/04/19 08:15 Venous Blood Potassium 2.8 mmol/L (3.6-5.2) L 01/03/19 21:58 Urine Color Yellow (YELLOW) 01/03/19 22:10 Urine Clarity Clear (Clear) 01/03/19 22:10 Urine pH 5.0 (5.0-8.0) 01/03/19 22:10 Ur Specific [place] 1.014 (1.003-1.030) 01/03/19 22:10 Urine Protein Negative mg/dL (NEGATIVE) 01/03/19 22:10 Urine Glucose (UA) 2+ mg/dL (Normal) H 01/03/19 22:10 Urine Ketones Negative mg/dL (NEGATIVE) 01/03/19 22:10 Urine Blood Negative (NEGATIVE) 01/03/19 22:10 Urine Nitrate Negative (NEGATIVE) 01/03/19 22:10 Urine Bilirubin Negative (NEGATIVE) 01/03/19 22:10 Urine Urobilinogen Normal mg/dL (0.2-1.0) 01/03/19 22:10 Ur Leukocyte Esterase Trace [place]/uL (Negative) 01/03/19 22:10 Urine WBC (Auto) 9 /hpf (0-5) H 01/03/19 22:10 Urine RBC (Auto) < 1 /hpf (0-3) 01/03/19 22:10 Ur Squamous Epith Cells 1 /hpf (0-5) 01/03/19 22:10 Hyaline Casts 6-10 /lpf (0-2) H 01/03/19 22:10 Discharge Plan - Discharge Medications Prescriptions: Rosuvastatin Calcium [Crestor] 10 mg PO HS 30 Days tab Aspirin [Ecotrin] 81 mg PO DAILY 30 Days tabec metFORMIN [glucOPHAGE] 500 mg PO BID 30 Days tab Pantoprazole [Protonix EC Tab] 20 mg PO DAILY 30 Days ect Levothyroxine [Synthroid] 50 mcg PO DAILY@0630 30 Days tab Metoprolol Succinate XL [Toprol XL] 25 mg PO DAILY 30 Days tab Sertraline [Zoloft] 50 mg PO HS 30 Days tab - Follow Up Plan Condition: STABLE Disposition: HOME/ ROUTINE Instructions: Acute Abdomen (Belly Pain), Adult (DC), Urinary Tract Infection in Women (DC) Additional Instructions: FOLLOW UP WITH DR FUNK IN HIS OFFICE ----CALL FOR APPOINTMENT FOLLOW UP WITH DR NASH IN HIS OFFICE CONTINUE HOME MEDICATION NEW PRESCRIPTION GIVEN ASPIRIN 81 MG PO DIALY SYNTHROID 50 MCG PO DAILY METFORMIN 500 MG PO BID TOPROL XL 25 MG PO DAILY PROTONIX 40 MG PO DAILY CRESTOR 10 MG PO DAILY SERTRALINE 50 MG PO HS ACTIVITY TOLERATED CALL DR FUNK OR GO TO THE EMERGENCY ROOM IF SYMPTOM RETURN OR WORSENING Referrals: Gucci Nash [Staff Provider] - Jason Funk MD [Staff Provider] -
--- NOTE | 2019-01-08 01:52 | PN ---
DATE: 01/07/2019 SUBJECTIVE: The patient is feeling better, decreased abdominal pain, decreased nausea and vomiting. She is calm, she is quiet. No chest pain. No nausea or vomiting. PHYSICAL EXAMINATION: VITAL SIGNS: Blood pressure 116/78, pulse 95, respiratory rate 20, temperature 97.5. LUNGS: Clear. No rales, no rhonchi. CARDIOVASCULAR SYSTEM: S1 and S2, regular. ABDOMEN: Soft, nontender. Bowel sounds are positive. ASSESSMENT: 1. Acute gastritis. 2. Severe generalized anxiety disorder. 3. Hypertension. 4. Type 2 diabetes. PLAN: Monitor the patient. The patient is for possible discharge. Jason Funk MD
[2019-01-08] MEDS: Levothyroxine 50 MCG TAB PO SCH (05:54)
[2019-01-08 07:52] VITALS: BP 92/62; PULSE 79; RESP 18; TEMP 97.9
[2019-01-08] MEDS: (Novolog) Insulin Aspart, Recombinant 100 u/ml 10 ml vial SC SCH (08:32)
[2019-01-08] MEDS: Metoprolol Succinate 25 mg XL Tab PO SCH (09:15)
[2019-01-08] MEDS: Pantoprazole 20 mg EC Tab PO SCH (09:15)
--- NOTE | 2019-01-08 20:36 | PN ---
DATE: 01/07/2019 LOCATION: Room 657, bed A. SUBJECTIVE: This is a 73-year-old female seen and examined in rounds without significant reported clinical changes with intermittent period of abdominal pain, on and off with generalized weakness and malaise as per [employer] network [employer]. The entire chart is reviewed including, but not limited to most recent lab and radiology study results, current and previous medication list; and today's lab results are still pending; however, the patient has subsequent decrease of amylase, lipase, but still elevated with elevated blood glucose level, with low phosphorous and low magnesium, but reported normal CBC. Denied any chest pain, palpitation, significant shortness of breath, but mid epigastric pain. PHYSICAL EXAMINATION: GENERAL: A 73-year-old female. VITAL SIGNS: Afebrile with pulse of 82, respiratory rate 20-22, blood pressure 108/72. HEENT: Showed pale dry oral mucous membrane. Nonicteric sclerae. LUNGS: Few scattered crepitation. Decreased air entry at bases. HEART: Positive S1 and S2. ABDOMEN: Soft. Bowel sounds are present. No mass or organomegaly. No reported tenderness or guarding. EXTREMITIES: Without significant clubbing, cyanosis, or edema. NEUROLOGIC: No reported new neurological deficits, sensory or motor. IMPRESSION: 1. Acute pancreatitis to rule out hyperlipidemia induced. 2. Re-exacerbation of peptic ulcer disease. 3. Poorly controlled diabetes mellitus. 4. Known history of severe anxiety syndrome. 5. Dehydration with mild renal insufficiency, improving . SUGGESTIONS: 1. Continue current management. 2. Repeat lipase, amylase level. 3. Advance diet when lipase and amylase level is normal or near normal. 4. Further recommendation to follow, and the patient will need colonoscopy, which is more stable clinically. Gucci Hussein MD
== END 2019-01-08 12:26 | disposition home or self-care (01) | DRG 689 ==
LOC: C.ER 18:17 → C.9E 22:37 → C.6T 22:40
PROVIDERS: ADMIT Internal Medicine; ATTEND Internal Medicine
PROC: 0DB68ZX Excision of Stomach, Via Natural or Artificial Opening Endoscopic, Diagnostic (ICD-10-PCS; 2019-01-05)
PROC: 0DB98ZX Excision of Duodenum, Via Natural or Artificial Opening Endoscopic, Diagnostic (ICD-10-PCS; principal; 2019-01-05 10:20)
DX: N39.0 Urinary tract infection, site not specified (principal); K85.90 Acute pancreatitis without necrosis or infection, unspecified; N17.9 Acute kidney failure, unspecified; K26.3 Acute duodenal ulcer without hemorrhage or perforation; K29.70 Gastritis, unspecified, without bleeding; E78.00 Pure hypercholesterolemia, unspecified; E11.65 Type 2 diabetes mellitus with hyperglycemia; E86.0 Dehydration; F41.1 Generalized anxiety disorder; I10 Essential (primary) hypertension; I25.10 Atherosclerotic heart disease of native coronary artery without angina pectoris; K29.00 Acute gastritis without bleeding; Z95.5 Presence of coronary angioplasty implant and graft; Z91.11 Patient's noncompliance with dietary regimen; F32.9 Major depressive disorder, single episode, unspecified; Z51.5 Encounter for palliative care; K44.9 Diaphragmatic hernia without obstruction or gangrene

== ENCOUNTER 2019-01-08 21:40 | Observation (INO) | payer MEDICARE ==
[2019-01-08 21:41] VITALS: BMI 43.0
[2019-01-08 22:01] VITALS: RESP 20
--- NOTE | 2019-01-08 22:15 | C.PDOC ---
History Of Present Illness 73 y/o F c PMHx of HTN, HLD, CAD with stent p/w chest pain and palpitations that began 3 hours ago. Patient was discharged from this hospital earlier today, was admitted for abdominal pain and had negative CT and US. States did not have chest pain or palpitations while admitted. Denies fever, chills, dyspnea. PMD [place] Time Seen by Provider: 01/08/19 21:46 Chief Complaint (Nursing): Abdominal Pain Past Medical History Vital Signs: Last Vital Signs Temp 98.5 F 01/08/19 21:55 Pulse 66 01/08/19 21:55 Resp 20 01/08/19 21:55 BP 92/40 L 01/08/19 21:55 Pulse Ox 99 01/08/19 21:55 Primary Care Provider: Jason Funk - Medical History PMH: Anxiety, HTN, Hypercholesterolemia, Pancreatitis Surgical History: Coronary Stent (x 2) Family History: States: No Known Family Hx - Social History Hx Alcohol Use: No Hx Substance Use: No - Immunization History Hx Tetanus Toxoid Vaccination: No Hx Influenza Vaccination: No Hx Pneumococcal Vaccination: No Review Of Systems Except As Marked, All Systems Reviewed And Found Negative. Constitutional: Negative for: Fever Respiratory: Negative for: Shortness of Breath Physical Exam - Physical Exam Additional Physical Exam Comments: General: No acute distress. Head: NC/AT Eyes: PERRL ENT: MMM Neck: Supple Chest: No tenderness. CV: Regular rate Lungs: CTA b/l Abd: Soft, nontender, nondistended Back: No CVA tenderness Extremities: No tenderness or edema Skin: No rash Neuro: Alert, no focal deficit ED Course And Treatment - Laboratory Results Result Diagrams: 01/08/19 22:40 01/08/19 22:40 O2 Sat by Pulse Oximetry: 99 Medical Decision Making Medical Decision Making: ekg sinus rhythm, 64 bpm, RBBB, no change from previous. CXR no pneumonia. Dr. Funk accepts patient to his service for cardiac observation. Disposition - Disposition Disposition: HOSPITALIZED Disposition Time: 23:15 Condition: FAIR Forms: [facility] (Brazilian) - Clinical Impression Clinical Impression: Chest pain, Palpitations
[2019-01-08] MEDS ORDERED: Sodium Chloride 0.9% 0 ML ONE (22:48)
[2019-01-08 22:49] LABS: BASO # 0.1 K/uL (0.0-0.2); BASO % 0.5 % (0.0-2.0); EOS # 0.3 K/uL (0.0-0.7); EOS % 2.7 % (0.0-4.0); HEMOGLOBIN 11.4 g/dL (11.0-16.0); LYMPH % 26.3 % (20.0-40.0); MEAN CELL VOLUME 76.5 fL (81.0-99.0); MEAN CORPUSCULAR HEMOGLOBIN 25.4 pg (27.0-31.0); MEAN CORPUSCULAR HGB CONC 33.1 g/dL (33.0-37.0); MEAN PLATELET VOLUME 8.1 fL (7.2-11.7); MONO # 1.4 K/uL (0.0-0.8); MONO % 12.1 % (0.0-10.0); NEUT # 6.7 K/uL (1.8-7.0); NEUT % 58.4 % (50.0-75.0); RBC 4.51 Mil/uL (3.80-5.20); RED CELL DISTRIBUTION WIDTH 16.3 % (11.5-14.5); WHITE BLOOD COUNT 11.5 K/uL (4.8-10.8)
[2019-01-08 22:56] LABS: INR 1.2; PARTIAL THROMBOPLASTIN TIME 30.2 SECONDS (21-34); PROTHROMBIN TIME 12.9 SECONDS (9.7-12.2)
[2019-01-08 23:05] LABS: ALB/GLOB RATIO 1.1 (1.0-2.1); ALBUMIN 3.6 g/dL (3.5-5.0)
[2019-01-08 23:14] LABS: CK-MB 1.98 ng/mL (0.0-3.38); TROPONIN I 0.099 ng/mL (0.00-0.120)
[2019-01-09 00:49] LABS: SQUAMOUS EPITHIAL 4 /hpf (0-5); URINE BILIRUBIN NEGATIVE (NEGATIVE); URINE BLOOD 1+ (NEGATIVE); URINE CLARITY Clear (Clear); URINE COLOR Yellow (YELLOW); URINE GLUCOSE (UA) NORMAL (Normal); URINE LEUKOCYTE ESTERASE 2+ Leu/uL (Negative); URINE PROTEIN NEGATIVE (NEGATIVE); URINE UROBILINOGEN NORMAL mg/dL (0.2-1.0)
[2019-01-09] MEDS: Levothyroxine 50 MCG TAB PO SCH (06:04)
[2019-01-09] MEDS: Metoprolol Succinate 25 mg XL Tab PO SCH (09:57)
[2019-01-09] MEDS: Pantoprazole 20 mg EC Tab PO SCH (09:58)
[2019-01-09] MEDS ORDERED: Enoxaparin 40 mg Syringe SC SCH (10:00)
--- NOTE | 2019-01-09 10:21 | PN ---
DATE: 01/07/2019 SUBJECTIVE: The patient is afebrile. She is calm. She is quite. She denies any nausea and vomiting. No chest pain. PHYSICAL EXAMINATION: VITAL SIGNS: Blood pressure 101/71, pulse 111, respiratory rate 20 and temperature 97.7. LUNGS: Clear. No rales. No rhonchi. CARDIOVASCULAR: S1 and S2, regular. ABDOMEN: Soft and nontender. Bowel sounds are positive. ASSESSMENT AND PLAN: The patient has endoscopy which showed esophagitis and erythema. The patient has elevated amylase and lipase and the patient will be treated as pancreatitis. The patient ambulates life breath liquid diet and monitor clinical response. The patient's abdomen ultrasound is negative, so the patient needs to be monitored medically . Jason Funk MD
--- NOTE | 2019-01-09 12:24 | RAD ---
Date of service: 01/08/2019 HISTORY: Rule out pneumonia COMPARISON: Comparison made with prior study dated 01/03/2019 TECHNIQUE: 1 view obtained. FINDINGS: LUNGS: No active pulmonary disease. PLEURA: No significant pleural effusion identified, no pneumothorax apparent. CARDIOVASCULAR: Heart size upper limits of normal/borderline enlarged. Sternotomy wires again noted. Aortic atherosclerotic calcification present. No pulmonary vascular congestion. OSSEOUS STRUCTURES: No significant abnormalities. VISUALIZED UPPER ABDOMEN: Normal. OTHER FINDINGS: None. IMPRESSION: No acute cardiopulmonary disease.
--- NOTE | 2019-01-09 14:55 | CARD ---
APPROVED REPORT Date of service: 01/08/2019 EKG Measurement Heart [id number] ID [id number] <Conclusion> Sinus rhythm with short ID Right bundle branch block Possible Inferior infarct, age undetermined Abnormal ECG
--- NOTE | 2019-01-09 22:12 | CP.PCM.HP ---
Present on Admission - Present on Admission Any Indicators Present on Admission: No Past Patient History - Past Social History Smoking Status: Never Smoked - CARDIAC Hx Hypercholesterolemia: Yes Hx Hypertension: Yes - ENDOCRINE/METABOLIC Hx Endocrine Disorders: Yes Hx Diabetes Mellitus Type 2: Yes - MUSCULOSKELETAL/RHEUMATOLOGICAL Hx Falls: No - GASTROINTESTINAL Hx Pancreatitis: Yes - GENITOURINARY/GYNECOLOGICAL Hx Urinary Tract Infection: Yes - PSYCHIATRIC Hx Anxiety: Yes Hx Substance Use: No - SURGICAL HISTORY Hx Coronary Stent: Yes (x 2) - ANESTHESIA Hx Anesthesia: Yes Meds Allergies/Adverse Reactions: Allergies Allergy/AdvReac Type Severity Reaction Status Date / Time No Known Allergies Allergy Verified 01/08/19 22:01 Results - Vital Signs Recent Vital Signs: Last Vital Signs Temp 98.1 F 01/09/19 15:10 Pulse 67 01/09/19 16:00 Resp 20 01/09/19 15:10 BP 141/70 01/09/19 15:10 Pulse Ox 96 01/09/19 15:10 - Labs Result Diagrams: 01/08/19 22:40 01/08/19 22:40 Labs: Laboratory Results - last 24 hr 01/08/19 01/08/19 01/08/19 21:58 22:40 22:40 WBC 11.5 H RBC 4.51 Hgb 11.4 Hct 34.5 MCV 76.5 L MCH 25.4 L MCHC 33.1 RDW 16.3 H Plt Count 225 MPV 8.1 Neut % (Auto) 58.4 Lymph % (Auto) 26.3 [place] % (Auto) 12.1 H Eos % (Auto) 2.7 Baso % (Auto) 0.5 Neut # (Auto) 6.7 Lymph # (Auto) 3.0 [place] # (Auto) 1.4 H Eos # (Auto) 0.3 Baso # (Auto) 0.1 PT 12.9 H INR 1.2 APTT 30.2 Sodium Potassium Chloride Carbon Dioxide Anion Gap BUN Creatinine Est GFR ( Amer) Est GFR (Non-Af Amer) POC Glucose (mg/dL) 169 H Random Glucose Calcium Total Bilirubin AST ALT Alkaline Phosphatase Total Creatine Kinase CK-MB (Mass) Troponin I Total Protein Albumin Globulin Albumin/Globulin Ratio Lipase Urine Color Urine Clarity Urine pH Ur Specific [place] Urine Protein Urine Glucose (UA) Urine Ketones Urine Blood Urine Nitrate Urine Bilirubin Urine Urobilinogen Ur Leukocyte Esterase Urine WBC (Auto) Urine RBC (Auto) Ur Squamous Epith Cells 01/08/19 01/09/19 01/09/19 22:40 00:36 00:55 WBC RBC Hgb Hct MCV MCH MCHC RDW Plt Count MPV Neut % (Auto) Lymph % (Auto) [place] % (Auto) Eos % (Auto) Baso % (Auto) Neut # (Auto) Lymph # (Auto) [place] # (Auto) Eos # (Auto) Baso # (Auto) PT INR APTT Sodium 138 Potassium 3.9 Chloride 102 Carbon Dioxide 28 Anion Gap 12 BUN 18 H Creatinine 1.5 H Est GFR ( Amer) 41 Est GFR (Non-Af Amer) 34 POC Glucose (mg/dL) 160 H Random Glucose 150 H D Calcium 10.0 Total Bilirubin 0.6 AST 30 ALT 20 Alkaline Phosphatase 43 Total Creatine Kinase 62 CK-MB (Mass) 1.98 Troponin I 0.0990 Total Protein 6.7 Albumin 3.6 Globulin 3.2 Albumin/Globulin Ratio 1.1 Lipase 223 Urine Color Yellow Urine Clarity Clear Urine pH 7.0 Ur Specific [place] 1.006 Urine Protein Negative Urine Glucose (UA) Normal Urine Ketones Negative Urine Blood 1+ H Urine Nitrate Negative Urine Bilirubin Negative Urine Urobilinogen Normal Ur Leukocyte Esterase 2+ H Urine WBC (Auto) 11 H Urine RBC (Auto) 7 H Ur Squamous Epith Cells 4 01/09/19 01/09/19 01/09/19 06:16 11:17 17:16 WBC RBC Hgb Hct MCV MCH MCHC RDW Plt Count MPV Neut % (Auto) Lymph % (Auto) [place] % (Auto) Eos % (Auto) Baso % (Auto) Neut # (Auto) Lymph # (Auto) [place] # (Auto) Eos # (Auto) Baso # (Auto) PT INR APTT Sodium Potassium Chloride Carbon Dioxide Anion Gap BUN Creatinine Est GFR ( Amer) Est GFR (Non-Af Amer) POC Glucose (mg/dL) 107 254 H 158 H Random Glucose Calcium Total Bilirubin AST ALT Alkaline Phosphatase Total Creatine Kinase CK-MB (Mass) Troponin I Total Protein Albumin Globulin Albumin/Globulin Ratio Lipase Urine Color Urine Clarity Urine pH Ur Specific [place] Urine Protein Urine Glucose (UA) Urine Ketones Urine Blood Urine Nitrate Urine Bilirubin Urine Urobilinogen Ur Leukocyte Esterase Urine WBC (Auto) Urine RBC (Auto) Ur Squamous Epith Cells 01/09/19 21:09 WBC RBC Hgb Hct MCV MCH MCHC RDW Plt Count MPV Neut % (Auto) Lymph % (Auto) [place] % (Auto) Eos % (Auto) Baso % (Auto) Neut # (Auto) Lymph # (Auto) [place] # (Auto) Eos # (Auto) Baso # (Auto) PT INR APTT Sodium Potassium Chloride Carbon Dioxide Anion Gap BUN Creatinine Est GFR ( Amer) Est GFR (Non-Af Amer) POC Glucose (mg/dL) 156 H Random Glucose Calcium Total Bilirubin AST ALT Alkaline Phosphatase Total Creatine Kinase CK-MB (Mass) Troponin I Total Protein Albumin Globulin Albumin/Globulin Ratio Lipase Urine Color Urine Clarity Urine pH Ur Specific [place] Urine Protein Urine Glucose (UA) Urine Ketones Urine Blood Urine Nitrate Urine Bilirubin Urine Urobilinogen Ur Leukocyte Esterase Urine WBC (Auto) Urine RBC (Auto) Ur Squamous Epith Cells
[2019-01-10 02:19] VITALS: O2SAT 98
--- NOTE | 2019-01-10 04:49 | HP ---
CHIEF COMPLAINT: Generalized weakness. The patient has palpitations. HISTORY OF PRESENT ILLNESS: This is a 73-year-old [place] female with history of severe generalized anxiety disorder, hypertension, hyperlipidemia, osteoarthritis, and type 2 diabetes. The patient was discharged yesterday from [facility]. Three hours prior to the admission, she started having palpitation, chest pain. The patient denied any dizziness. She denied any nausea, vomiting. She has constipation. She denied any dysuria, hematuria, pyuria. She denied any abdominal pain. She has left knee pain. She has difficulty walking. She denies any history of polyuria, polydipsia, polyphagia. She denies any history of hematuria, pyuria. She denies any history of sneezing, itchy eyes, itchy nose. She denies any history of skin rash. PAST MEDICAL HISTORY: Hypertension, type 2 diabetes, hyperlipidemia, anxiety. She has coronary artery disease, status post two stents. SOCIAL HISTORY: Nonsmoker, non-EtOH user. CURRENT MEDICATIONS: She is on Zoloft, Crestor, Protonix, Toprol-XL, Synthroid, aspirin, Glucophage. FAMILY HISTORY: Positive for diabetes in the sister. PHYSICAL EXAMINATION: GENERAL: An elderly female in no acute distress. She is extremely anxious. VITAL SIGNS: Blood pressure 141/70, pulse 70, respiratory rate 20, temperature 98.1. SKIN: No rashes. No bruises. No purpura. No petechiae. HEENT: Atraumatic and normocephalic. Negative pallor. Negative jaundice. Extraocular movements are intact. NECK: Supple. No JVD. No lymph node. No thyromegaly. No carotid bruits. CHEST WALL: Bilateral symmetrical expansion. LUNGS: Bilaterally clear. No rales, no rhonchi. CARDIOVASCULAR SYSTEM: PMI not localized. S1 and S2, regular. No heave. No thrill. ABDOMEN: Soft, nontender. Bowel sounds are positive. RECTAL: No masses. No bleed. EXTREMITIES: No clubbing, cyanosis, edema. CENTRAL NERVOUS SYSTEM: Awake, alert, oriented x3. Cranial nerves II through XII are normal. Power is 5/5 x4. Plantars are downgoing. ASSESSMENT: 1. Palpitation, dizziness. The patient has severe anxiety most likely all of this is related with anxiety. 2. Diabetes. 3. Hypertension. 4. Osteoarthritis. PLAN: Admit. Detailed orders are written. Seen and examined. Jason Funk MD
[2019-01-10] MEDS: Levothyroxine 50 MCG TAB PO SCH (05:37)
[2019-01-10 08:17] VITALS: BP 140/80; PULSE 80; TEMP 97.8
[2019-01-10] MEDS: Metoprolol Succinate 25 mg XL Tab PO SCH (09:54)
[2019-01-10] MEDS: Pantoprazole 20 mg EC Tab PO SCH (09:54)
--- NOTE | 2019-01-10 21:49 | CP.PCM.DIS ---
Provider - Provider Date of Admission: 01/08/19 23:33 Attending physician: Jason Funk MD Time Spent in preparation of Discharge (in minutes): 30 Hospital Course - Lab Results Lab Results: Micro Results 01/09/19 00:36 Urine Random Urine Culture - Final No Growth (<1,000 CFU/ML) Most Recent Lab Values WBC 11.5 K/uL (4.8-10.8) H 01/08/19 22:40 RBC 4.51 Mil/uL (3.80-5.20) 01/08/19 22:40 Hgb 11.4 g/dL (11.0-16.0) 01/08/19 22:40 Hct 34.5 % (34.0-47.0) 01/08/19 22:40 MCV 76.5 fL (81.0-99.0) L 01/08/19 22:40 MCH 25.4 pg (27.0-31.0) L 01/08/19 22:40 MCHC 33.1 g/dL (33.0-37.0) 01/08/19 22:40 RDW 16.3 % (11.5-14.5) H 01/08/19 22:40 Plt Count 225 K/uL (130-400) 01/08/19 22:40 MPV 8.1 fL (7.2-11.7) 01/08/19 22:40 Neut % (Auto) 58.4 % (50.0-75.0) 01/08/19 22:40 Lymph % (Auto) 26.3 % (20.0-40.0) 01/08/19 22:40 Wolfe % (Auto) 12.1 % (0.0-10.0) H 01/08/19 22:40 Eos % (Auto) 2.7 % (0.0-4.0) 01/08/19 22:40 Baso % (Auto) 0.5 % (0.0-2.0) 01/08/19 22:40 Neut # (Auto) 6.7 K/uL (1.8-7.0) 01/08/19 22:40 Lymph # (Auto) 3.0 K/uL (1.0-4.3) 01/08/19 22:40 Wolfe # (Auto) 1.4 K/uL (0.0-0.8) H 01/08/19 22:40 Eos # (Auto) 0.3 K/uL (0.0-0.7) 01/08/19 22:40 Baso # (Auto) 0.1 K/uL (0.0-0.2) 01/08/19 22:40 PT 12.9 SECONDS (9.7-12.2) H 01/08/19 22:40 INR 1.2 01/08/19 22:40 APTT 30.2 SECONDS (21-34) 01/08/19 22:40 Sodium 138 mmol/L (132-148) 01/08/19 22:40 Potassium 3.9 mmol/L (3.6-5.2) 01/08/19 22:40 Chloride 102 mmol/L (98-107) 01/08/19 22:40 Carbon Dioxide 28 mmol/L (22-30) 01/08/19 22:40 Anion Gap 12 (10-20) 01/08/19 22:40 BUN 18 mg/dL (7-17) H 01/08/19 22:40 Creatinine 1.5 mg/dL (0.7-1.2) H 01/08/19 22:40 Est GFR ( Amer) 41 01/08/19 22:40 Est GFR (Non-Af Amer) 34 01/08/19 22:40 POC Glucose (mg/dL) 179 mg/dL (65-110) H 01/10/19 11:31 Random Glucose 150 mg/dL (65-105) H D 01/08/19 22:40 Calcium 10.0 mg/dl (8.6-10.4) 01/08/19 22:40 Total Bilirubin 0.6 mg/dL (0.2-1.3) 01/08/19 22:40 AST 30 U/L (14-36) 01/08/19 22:40 ALT 20 U/L (9-52) 01/08/19 22:40 Alkaline Phosphatase 43 U/L (38-126) 01/08/19 22:40 Total Creatine Kinase 62 U/L (30-135) 01/08/19 22:40 CK-MB (Mass) 1.98 ng/mL (0.0-3.38) 01/08/19 22:40 Troponin I 0.0990 ng/mL (0.00-0.120) 01/08/19 22:40 Total Protein 6.7 g/dL (6.3-8.3) 01/08/19 22:40 Albumin 3.6 g/dL (3.5-5.0) 01/08/19 22:40 Globulin 3.2 gm/dL (2.2-3.9) 01/08/19 22:40 Albumin/Globulin Ratio 1.1 (1.0-2.1) 01/08/19 22:40 Lipase 223 U/L (23-300) 01/08/19 22:40 Urine Color Yellow (YELLOW) 01/09/19 00:36 Urine Clarity Clear (Clear) 01/09/19 00:36 Urine pH 7.0 (5.0-8.0) 01/09/19 00:36 Ur Specific Comins 1.006 (1.003-1.030) 01/09/19 00:36 Urine Protein Negative mg/dL (NEGATIVE) 01/09/19 00:36 Urine Glucose (UA) Normal mg/dL (Normal) 01/09/19 00:36 Urine Ketones Negative mg/dL (NEGATIVE) 01/09/19 00:36 Urine Blood 1+ (NEGATIVE) H 01/09/19 00:36 Urine Nitrate Negative (NEGATIVE) 01/09/19 00:36 Urine Bilirubin Negative (NEGATIVE) 01/09/19 00:36 Urine Urobilinogen Normal mg/dL (0.2-1.0) 01/09/19 00:36 Ur Leukocyte Esterase 2+ Magalis/uL (Negative) H 01/09/19 00:36 Urine WBC (Auto) 11 /hpf (0-5) H 01/09/19 00:36 Urine RBC (Auto) 7 /hpf (0-3) H 01/09/19 00:36 Ur Squamous Epith Cells 4 /hpf (0-5) 01/09/19 00:36 Discharge Plan - Discharge Medications Prescriptions: Cephalexin [Keflex] 500 mg PO BID 5 Days capsule - Follow Up Plan Condition: FAIR Disposition: HOME/ ROUTINE Instructions: Heart Healthy Diet, Chest Pain (DC), Palpitations (DC) Additional Instructions: Follow up in [address] Funk Activity as tolerated Please resume all medications New prescriptions Keflex 500mg BID daily x5days Activity as tolerated Call Dr. Funk or go to the [facility] room if symptoms return or worsen Discussed with patient and family at bedside who agree and verbalized understanding Referrals: Jason Funk MD [Staff Provider] -
== END 2019-01-10 13:39 | disposition home or self-care (01) ==
LOC: C.ER 21:40 → C.9E 23:33 → C.6T 23:48
PROVIDERS: ADMIT Internal Medicine; ATTEND Internal Medicine
DX: K85.90 Acute pancreatitis without necrosis or infection, unspecified (principal); R07.9 Chest pain, unspecified; E11.9 Type 2 diabetes mellitus without complications; E78.00 Pure hypercholesterolemia, unspecified; E78.5 Hyperlipidemia, unspecified; F41.1 Generalized anxiety disorder; I10 Essential (primary) hypertension; I25.10 Atherosclerotic heart disease of native coronary artery without angina pectoris; K20.9 Esophagitis, unspecified; Z83.3 Family history of diabetes mellitus; Z95.5 Presence of coronary angioplasty implant and graft; R42 Dizziness and giddiness; R53.1 Weakness
CPT/HCPCS: 71045; 80053; 81001; 82550; 82553; 82948; 83690; 84484; 85025; 85610; 85730; 87086; 93005; 99285; G0378; J1644